=== PATIENT | female | born 1970 | race African-American/Black ===

== ENCOUNTER 2019-12-02 19:07 | Emergency (ER) | payer MEDICAID ==
[~2019-12-02] VITALS: Ht 170.2 cm; Wt 123.0 kg
[2019-12-02] MEDS ORDERED: HALOPERIDOL LACTATE 5MG/ML VIAL IM STA (20:06)
[2019-12-02] MEDS ORDERED: LORAZEPAM 2MG/ML CPJ IM STA (20:06)
[2019-12-02 20:52] LABS: BASOPHILS % 0.7 % (0.0-2.0); EOSINOPHILS % 0.3 % (0.0-5.0); HEMATOCRIT. 38.8 % (36.0-48.0); HEMOGLOBIN. 12.8 g/dL (12.0-16.0); LYMPHOCYTES % 30.6 % (20.0-50.0); MEAN CORPUSCULAR HEMOGLOBIN 28.7 pg (28.0-32.0); MEAN CORPUSCULAR VOLUME 86.8 fL (81.0-99.0); MEAN PLATELET VOLUME 9.9 fl (7.4-10.4); NEUTROPHILS % 62.4 % (40.0-76.0); PLATELET 224 x1000/uL (130-400); RED BLOOD CELL COUNT 4.47 mill/uL (4.2-5.4); RED CELL DISTRIBUTION WIDTH 15.4 % (11.6-14.6)
[2019-12-02 21:02] LABS: CHLORIDE 109 mEq/L (98-107)
[2019-12-02 21:06] LABS: ETHANOL BLOOD < 10 mg/dL
[2019-12-02 21:14] LABS: HCG SCREEN NEGATIVE
[2019-12-02 21:15] LABS: CLARITY URINE CLEAR (CLEAR); COLOR URINE DARK YELLOW (YELLOW); KETONES URINE TRACE (NEGATIVE); LEUKOCYTE ESTERASE URINE NEGATIVE (NEGATIVE); NITRITE URINE NEGATIVE (NEGATIVE); OCCULT BLOOD URINE 2+ (NEGATIVE); PROTEIN URINE 1+ (NEGATIVE); SPECIFIC GRAVITY URINE 1.033 (1.005-1.030)
[2019-12-02 21:33] LABS: *COCAINE SCREEN URINE NEGATIVE (NEGATIVE)
[2019-12-02 21:34] LABS: *AMPHETAMINES SCREEN URINE NEGATIVE (NEGATIVE); *BARBITURATES SCREEN URINE NEGATIVE (NEGATIVE); CANNABINOID URINE SCREEN NEGATIVE (NEGATIVE); METHADONE URINE SCREEN NEGATIVE (NEGATIVE); OPIATES URINE SCREEN NEGATIVE (NEGATIVE); PHENCYCLIDINE URINE SCREEN NEGATIVE (NEGATIVE)
[2019-12-02 21:35] LABS: *BENZODIAZEPINES SCREEN URINE NEGATIVE (NEGATIVE)
[2019-12-03] MEDS ORDERED: ACETAMINOPHEN 325MG TABLET PO ONE (03:15)
[2019-12-03] MEDS ORDERED: HALOPERIDOL LACTATE 5MG/ML VIAL IM ONE (03:15)
[2019-12-03] MEDS ORDERED: LORAZEPAM 2MG/ML CPJ IM ONE (03:15)
[2019-12-03] MEDS ORDERED: OLANZAPINE 5MG TABLET ODT PO ONE (11:00)
[2019-12-03 17:33] VITALS: BP 139/89
== END 2019-12-03 17:35 ==
LOC: ER 19:07
DX: F20.9 Schizophrenia, unspecified (principal); F31.9 Bipolar disorder, unspecified; R45.851 Suicidal ideations; E11.9 Type 2 diabetes mellitus without complications; Z75.1 Person awaiting admission to adequate facility elsewhere; Z03.818 Encounter for observation for suspected exposure to other biological agents ruled out; Z88.0 Allergy status to penicillin
CPT/HCPCS: 36415; 80053; 80305; 80307; 80320; 80329; 81003; 82962; 83690; 84443; 84703; 85025; 87635; 93005; 96372; 99285; C9803; J1630; J2060; G0480